=== PATIENT | male | born 1950 | race Caucasian/White ===

== ENCOUNTER 2021-08-28 23:58 | Inpatient (IN) ==
[2021-08-29] MEDS ORDERED: Naloxone 0.4 MG/ML INJ IVP PRN (12:34)
[2021-08-29] MEDS ORDERED: *HR* OxyCODONE/APAP 5/325 TABLET PO PRN (13:25)
[2021-08-29] MEDS ORDERED: Ringers Solution, Lactated 1,000 ML IVC SCH (13:30)
[2021-08-29] MEDS: Piperacillin/Tazobactam 3.375 GM in 0.9 % Sodium Chloride Mini Bag 100 ML IVPB SCH ×3 (14:15→23:36)
[2021-08-29] MEDS: *HR* Heparin 5,000 UNIT/ML VIAL SQ SCH (20:36)
[2021-08-30 02:51] LABS: Hematocrit 33.6 % (37.5-50.1); Hemoglobin 11.5 g/dL (12.9-16.9); Mean Corpuscular HGB Conc 34.2 g/dL (31.6-35.5); Mean Corpuscular Hemoglobin 31.3 pg (28.0-33.3); Mean Corpuscular Volume 91.3 fL (83.0-100.0); Mean Platelet Volume 11.7 fL (9.4-12.4); Platelet Count 111 K/mcL (140-400); Red Blood Count 3.68 M/mcL (4.19-5.50); Red Cell Distribution Width 12.4 % (11.5-14.5); White Blood Count 9.4 K/mcL (4.3-11.1)
[2021-08-30 03:09] LABS: Calcium 7.8 mg/dL (8.6-10.3); Potassium 3.8 mEq/L (3.5-5.1)
[2021-08-30 03:28] LABS: Burr Cells 1+ (Not Present)
[2021-08-30 03:31] LABS: Dohle Bodies Present (Not Present); Lymphocytes # 0.4 K/mcL (0.6-4.6); Monocytes # 0.2 K/mcL (0.0-1.3); Neutrophils # 8.8 K/mcL (1.6-8.9); Platelet Estimate Slight Decrease (Normal)
[2021-08-30] MEDS: *HR* Heparin 5,000 UNIT/ML VIAL SQ SCH ×2 (04:41→14:16)
[2021-08-30] MEDS ORDERED: Dextrose 4 GM Chewable Tablets PO PRN ×2 (05:37)
[2021-08-30] MEDS ORDERED: D5% in Water 1,000 ML IVC PRN (05:37)
[2021-08-30] MEDS: *HR* Dextrose 50 % in Water (Syg) 50 ML SYRINGE IVP PRN ×2 (05:46→05:58)
[2021-08-30 08:30] LABS: ABG Base Excess -6 mEq/L (-2 to 3); ABG HCO3 20 mEq/L (21-27); ABG Oxygen Saturation 95 % (95-98); ABG PCO2 41 mmHg (35-45); ABG PH 7.31 pH Units (7.32-7.45); ABG PO2 82 mmHg (85-104); ABG TCO2 21 mEq/L (20-26)
[2021-08-30] MEDS ORDERED: Azithromycin 500 MG in 0.9 % Sodium Chloride 250 ML IVPB SCH (09:00)
[2021-08-30] MEDS ORDERED: Vancomycin 1,250 MG/262.5 ML IV.SOLN IVPB ONE (09:00)
[2021-08-30] MEDS: 0.9 % Sodium Chloride 1,000 ML IVC SCH (12:11)
[2021-08-30] MEDS: Aspirin 81 MG TAB.CHEW PO SCH (12:11)
[2021-08-30] MEDS: Pantoprazole 40 MG VIAL IVP SCH (12:12)
[2021-08-30] MEDS: MethylPREDNISolone 40 MG/ML VIAL IVP SCH ×2 (12:13→20:30)
[2021-08-30] MEDS: Piperacillin/Tazobactam 3.375 GM in 0.9 % Sodium Chloride Mini Bag 100 ML IVPB SCH ×2 (14:17→20:03)
[2021-08-30] MEDS ORDERED: *HR* Heparin 5,000 UNIT/ML VIAL IVP ONE (19:37)
[2021-08-30] MEDS ORDERED: Ipratropium/Albuterol Neb 3 ML ONE (19:58)
[2021-08-30] MEDS: Ipratropium/Albuterol Neb 3 ML IH SCH (20:19)
[2021-08-30] MEDS: Budesonide/Formoterol 160/4.5 1 PUFF INH IH SCH (20:19)
[2021-08-30] MEDS: Heparin 25,000UNIT/250ML 1/2NS 25,000 UNIT/250 ML IV.SOLN IVC SCH (20:29)
[2021-08-30] MEDS: *HR* OxyCODONE Immed Rel 15 MG TABLET PO SCH (20:30)
[2021-08-30 21:50] LABS: Hematocrit 32.8 % (37.5-50.1); Hemoglobin 11.3 g/dL (12.9-16.9); Mean Corpuscular HGB Conc 34.5 g/dL (31.6-35.5); Mean Corpuscular Hemoglobin 31.1 pg (28.0-33.3); Mean Corpuscular Volume 90.4 fL (83.0-100.0); Mean Platelet Volume 11.5 fL (9.4-12.4); Platelet Count 144 K/mcL (140-400); Red Blood Count 3.63 M/mcL (4.19-5.50); Red Cell Distribution Width 12.3 % (11.5-14.5); White Blood Count 13.7 K/mcL (4.3-11.1)
[2021-08-30 21:55] LABS: Heparin anti-factor XA UFH 0.49 IU/mL (0.30-0.70)
[2021-08-30 21:56] LABS: INR 1.4; Prothrombin Time 15.9 Seconds (9.4-12.1)
[2021-08-31] MEDS: Piperacillin/Tazobactam 3.375 GM in 0.9 % Sodium Chloride Mini Bag 100 ML IVPB SCH ×2 (01:07→08:30)
[2021-08-31] MEDS: *HR* OxyCODONE Immed Rel 15 MG TABLET PO SCH ×6 (01:08→20:43)
[2021-08-31] MEDS: 0.9 % Sodium Chloride 1,000 ML IVC SCH ×2 (01:08→09:53)
[2021-08-31 03:35] LABS: Basophils % 0.1 %; Mean Corpuscular Volume 90.2 fL (83.0-100.0)
[2021-08-31 03:37] LABS: Hematocrit 34.1 % (37.5-50.1); Hemoglobin 11.7 g/dL (12.9-16.9); Immature Granulocytes % 0.5 % (0-4); Immature Platelets 7.2 % (1.1-6.1); Lymphocytes # 0.2 K/mcL (0.6-4.6); Lymphocytes % 1.3 %; Mean Corpuscular HGB Conc 34.3 g/dL (31.6-35.5); Monocytes # 0.2 K/mcL (0.0-1.3); Monocytes % 1.3 %; Neutrophils # 14.3 K/mcL (1.6-8.9); Platelet Count 147 K/mcL (140-400); Red Blood Count 3.78 M/mcL (4.19-5.50); Red Cell Distribution Width 12.4 % (11.5-14.5); Segmented Neutrophils % 96.8 %; White Blood Count 14.8 K/mcL (4.3-11.1)
[2021-08-31] MEDS: Ipratropium/Albuterol Neb 3 ML IH SCH ×4 (03:39→21:57)
[2021-08-31 04:44] LABS: Burr Cells 1+ (Not Present); Dohle Bodies Present (Not Present); Platelet Estimate Normal (Normal)
[2021-08-31] MEDS: MethylPREDNISolone 40 MG/ML VIAL IVP SCH ×4 (05:01→20:40)
[2021-08-31 05:40] LABS: Calcium 8.7 mg/dL (8.6-10.3); Magnesium 1.9 mg/dL (1.6-2.6); Phosphorous 4.3 mg/dL (2.7-4.5); Potassium 3.2 mEq/L (3.5-5.1)
[2021-08-31] MEDS: *HR* Heparin 5,000 UNIT/ML VIAL IVP PRN ×3 (06:52→19:15)
[2021-08-31] MEDS ORDERED: Perflutren Lipid Microsphere 1.3 ML in 0.9 % Sodium Chloride 8.7 ML IVP PRN (07:51)
[2021-08-31] MEDS ORDERED: Sennosides/Docusate Sodium TABLET PO PRN (07:53)
[2021-08-31] MEDS: Budesonide/Formoterol 160/4.5 1 PUFF INH IH SCH ×2 (07:58→21:57)
[2021-08-31] MEDS: Aspirin 81 MG TAB.CHEW PO SCH (08:29)
[2021-08-31] MEDS: Topiramate 25 MG TABLET PO SCH (08:29)
[2021-08-31] MEDS: Pantoprazole 40 MG VIAL IVP SCH (08:30)
[2021-08-31] MEDS: Sodium Bicarbonate 75 MEQ in 0.45 % Sodium Chloride 1,000 ML IVC SCH ×2 (08:30→22:47)
[2021-08-31 13:09] LABS: ABG Base Excess -5 mEq/L (-2 to 3); ABG HCO3 23 mEq/L (21-27); ABG Oxygen Saturation 95 % (95-98); ABG PCO2 56 mmHg (35-45); ABG PH 7.22 pH Units (7.32-7.45); ABG PO2 91 mmHg (85-104); ABG TCO2 25 mEq/L (20-26)
[2021-08-31 14:40] LABS: Amphetamine Screen,Urine Negative ng/mL (Cutoff=1000); Barbiturate Screen,Urine Negative ng/mL (Cutoff=200); Benzodiazepines Screen,Urine Negative ng/mL (Cutoff=200); Cannabinoid Screen,Urine Negative ng/mL (Cutoff = 50); Cocaine Screen,Urine Negative ng/mL (Cutoff= 300); Opiate Screen,Urine Positive ng/mL (Cutoff=300); Phencyclidine Screen,Urine Negative ng/mL (Cutoff=25)
[2021-08-31] MEDS ORDERED: *HR* LORazepam 2 MG/ML VIAL IVP ONE (16:32)
[2021-08-31] MEDS: cefTRIAXone 2,000 MG in 0.9 % Sodium Chloride Mini Bag 100 ML IVPB SCH (16:53)
[2021-08-31] MEDS: Heparin 25,000UNIT/250ML 1/2NS 25,000 UNIT/250 ML IV.SOLN IVC SCH (16:53)
[2021-08-31 17:45] LABS: ABG Base Excess -4 mEq/L (-2 to 3); ABG HCO3 26 mEq/L (21-27); ABG Oxygen Saturation 97 % (95-98); ABG PCO2 68 mmHg (35-45); ABG PH 7.19 pH Units (7.32-7.45); ABG PO2 113 mmHg (85-104); ABG TCO2 28 mEq/L (20-26); Blood Gas Pressure Support 16 cm H2O
[2021-08-31] MEDS: Topiramate 100 MG TABLET PO SCH (20:41)
[2021-08-31] MEDS: traZODone 50 MG TABLET PO SCH (20:41)
[2021-08-31 22:05] LABS: ABG Base Excess -3 mEq/L (-2 to 3); ABG HCO3 25 mEq/L (21-27); ABG Oxygen Saturation 96 % (95-98); ABG PCO2 56 mmHg (35-45); ABG PH 7.26 pH Units (7.32-7.45); ABG PO2 97 mmHg (85-104); ABG TCO2 27 mEq/L (20-26); Blood Gas Modality NIV
[2021-09-01] MEDS: *HR* OxyCODONE Immed Rel 15 MG TABLET PO SCH ×3 (00:12→08:57)
[2021-09-01] MEDS: *HR* Heparin 5,000 UNIT/ML VIAL IVP PRN (02:16)
[2021-09-01] MEDS: Ipratropium/Albuterol Neb 3 ML IH SCH ×4 (03:39→21:22)
[2021-09-01] MEDS: MethylPREDNISolone 40 MG/ML VIAL IVP SCH ×3 (04:27→20:00)
[2021-09-01] MEDS: Heparin 25,000UNIT/250ML 1/2NS 25,000 UNIT/250 ML IV.SOLN IVC SCH (05:07)
[2021-09-01] MEDS: Pantoprazole 40 MG VIAL IVP SCH (08:10)
[2021-09-01] MEDS: Aspirin 81 MG TAB.CHEW PO SCH (08:57)
[2021-09-01] MEDS: Topiramate 25 MG TABLET PO SCH (08:58)
[2021-09-01] MEDS ORDERED: *HR* OxyCODONE Immed Rel 15 MG TABLET PO PRN (09:40)
[2021-09-01] MEDS: Budesonide/Formoterol 160/4.5 1 PUFF INH IH SCH ×2 (10:20→21:22)
[2021-09-01 10:28] LABS: ABG Base Excess -3 mEq/L (-2 to 3); ABG HCO3 27 mEq/L (21-27); ABG Oxygen Saturation 94 % (95-98); ABG PCO2 80 mmHg (35-45); ABG PH 7.14 pH Units (7.32-7.45); ABG PO2 93 mmHg (85-104); ABG TCO2 30 mEq/L (20-26); Blood Gas Pressure Support 18 cm H2O
[2021-09-01 10:32] LABS: Acetaminophen < 10 mcg/mL (10-20); Salicylate < 2.5 mg/dL (15.0-30.0)
[2021-09-01 10:32] LABS: Magnesium 2.2 mg/dL (1.6-2.6); Phosphorous 5.5 mg/dL (2.7-4.5)
[2021-09-01 10:33] LABS: Calcium 8.7 mg/dL (8.6-10.3); Potassium 3.8 mEq/L (3.5-5.1)
[2021-09-01 10:34] LABS: Albumin 2.5 g/dL (3.5-5.7); Albumin/Globulin Ratio 0.8 (1.1-2.2); Bilirubin,Direct 0.1 mg/dL (0.0-0.2); Bilirubin,Indirect 0.3 mg/dL (0.0-1.0); Bilirubin,Total 0.4 mg/dL (0.3-1.0); Total Protein 5.5 g/dL (6.4-8.9)
[2021-09-01 12:56] LABS: ABG Base Excess -2 mEq/L (-2 to 3); ABG HCO3 28 mEq/L (21-27); ABG Oxygen Saturation 98 % (95-98); ABG PCO2 77 mmHg (35-45); ABG PH 7.18 pH Units (7.32-7.45); ABG PO2 139 mmHg (85-104); ABG TCO2 31 mEq/L (20-26)
[2021-09-01] MEDS: cefTRIAXone 2,000 MG in 0.9 % Sodium Chloride Mini Bag 100 ML IVPB SCH (14:49)
[2021-09-01 16:04] LABS: ABG Base Excess -1 mEq/L (-2 to 3); ABG HCO3 29 mEq/L (21-27); ABG Oxygen Saturation 91 % (95-98); ABG PCO2 79 mmHg (35-45); ABG PH 7.18 pH Units (7.32-7.45); ABG PO2 80 mmHg (85-104); ABG TCO2 32 mEq/L (20-26)
[2021-09-01] MEDS ORDERED: levETIRAcetam 1,000 MG in 0.9 % Sodium Chloride 100 ML IVPB ONE (17:30)
[2021-09-01] MEDS ORDERED: Furosemide 40 MG/4 ML VIAL IVP ONE (17:45)
[2021-09-01] MEDS ORDERED: Ringers Solution, Lactated 1,000 ML IVC SCH (17:45)
[2021-09-01] MEDS ORDERED: *HR* Heparin 5,000 UNIT/ML VIAL SQ SCH (18:00)
[2021-09-01 18:04] LABS: Basophils % 0.1 %; Hematocrit 34.9 % (37.5-50.1); Hemoglobin 11.5 g/dL (12.9-16.9); Immature Granulocytes % 0.7 % (0-4); Lymphocytes # 0.4 K/mcL (0.6-4.6); Lymphocytes % 3.7 %; Mean Corpuscular Hemoglobin 31.3 pg (28.0-33.3); Mean Corpuscular Volume 94.8 fL (83.0-100.0); Mean Platelet Volume 11.4 fL (9.4-12.4); Monocytes # 0.2 K/mcL (0.0-1.3); Monocytes % 2.3 %; Neutrophils # 9.9 K/mcL (1.6-8.9); Platelet Count 117 K/mcL (140-400); Red Blood Count 3.68 M/mcL (4.19-5.50); Red Cell Distribution Width 12.9 % (11.5-14.5); Segmented Neutrophils % 93.2 %; White Blood Count 10.6 K/mcL (4.3-11.1)
[2021-09-01 18:05] LABS: ABG Base Excess 0 mEq/L (-2 to 3); ABG HCO3 28 mEq/L (21-27); ABG Oxygen Saturation 97 % (95-98); ABG PCO2 65 mmHg (35-45); ABG PH 7.25 pH Units (7.32-7.45); ABG PO2 105 mmHg (85-104); ABG TCO2 30 mEq/L (20-26); Blood Gas Modality AVAPS
[2021-09-01 18:14] LABS: INR 1.2; Prothrombin Time 13.3 Seconds (9.4-12.1)
[2021-09-01 18:17] LABS: Activated Partial Thrombo Time 26.9 Seconds (26.0-36.0)
[2021-09-01 18:19] LABS: Albumin 2.6 g/dL (3.5-5.7); Albumin/Globulin Ratio 0.9 (1.1-2.2); Bilirubin,Direct 0.1 mg/dL (0.0-0.2); Bilirubin,Indirect 0.3 mg/dL (0.0-1.0); Bilirubin,Total 0.4 mg/dL (0.3-1.0); Calcium 8.7 mg/dL (8.6-10.3); Globulin 2.8 g/dL (2.4-3.5); Potassium 3.6 mEq/L (3.5-5.1); Total Protein 5.4 g/dL (6.4-8.9)
[2021-09-01 18:28] LABS: Platelet Estimate Decreased (Normal); Reactive Lymphocytes Present (Not Present)
[2021-09-01 20:31] LABS: ABG Base Excess 0 mEq/L (-2 to 3); ABG HCO3 29 mEq/L (21-27); ABG Oxygen Saturation 92 % (95-98); ABG PCO2 69 mmHg (35-45); ABG PH 7.23 pH Units (7.32-7.45); ABG PO2 77 mmHg (85-104); ABG TCO2 31 mEq/L (20-26); Blood Gas Modality AVAPS; Blood Gas VT 550 cc
[2021-09-01] MEDS: *HR* Heparin 5,000 UNIT/ML VIAL SQ SCH (20:52)
[2021-09-01] MEDS: Topiramate 100 MG TABLET PO SCH (21:45)
[2021-09-01] MEDS: traZODone 50 MG TABLET PO SCH (21:45)
[2021-09-02] MEDS: *HR* Metoprolol 5 MG/5 ML VIAL IVP SCH ×5 (01:50→23:48)
[2021-09-02 03:54] LABS: VBG Ionized Calcium 1.26 mmol/L (1.15-1.35)
[2021-09-02 03:59] LABS: Basophils % 0.1 %; Hematocrit 33.3 % (37.5-50.1); Immature Granulocytes % 0.8 % (0-4); Lymphocytes # 0.4 K/mcL (0.6-4.6); Lymphocytes % 4.9 %; Mean Corpuscular Hemoglobin 31.3 pg (28.0-33.3); Mean Corpuscular Volume 94.6 fL (83.0-100.0); Mean Platelet Volume 11.9 fL (9.4-12.4); Monocytes # 0.2 K/mcL (0.0-1.3); Monocytes % 2.3 %; Platelet Count 108 K/mcL (140-400); Red Blood Count 3.52 M/mcL (4.19-5.50); Segmented Neutrophils % 91.9 %
[2021-09-02 04:11] LABS: Neutrophils # 8.3 K/mcL (1.6-8.9)
[2021-09-02 04:16] LABS: Calcium 8.8 mg/dL (8.6-10.3); Phosphorous 3.5 mg/dL (2.7-4.5); Potassium 3.4 mEq/L (3.5-5.1)
[2021-09-02] MEDS: Ipratropium/Albuterol Neb 3 ML IH SCH ×4 (04:44→20:14)
[2021-09-02] MEDS: MethylPREDNISolone 40 MG/ML VIAL IVP SCH ×3 (04:49→20:08)
[2021-09-02 05:07] LABS: Platelet Estimate Slight Decrease (Normal); Reactive Lymphocytes Present (Not Present)
[2021-09-02] MEDS: Budesonide/Formoterol 160/4.5 1 PUFF INH IH SCH ×2 (07:44→20:15)
[2021-09-02] MEDS: Pantoprazole 40 MG VIAL IVP SCH (09:07)
[2021-09-02] MEDS: *HR* Heparin 5,000 UNIT/ML VIAL SQ SCH ×3 (09:07→20:10)
[2021-09-02] MEDS: Topiramate 25 MG TABLET PO SCH ×2 (09:08→11:24)
[2021-09-02] MEDS: Aspirin 81 MG TAB.CHEW PO SCH ×2 (09:08→11:24)
[2021-09-02] MEDS ORDERED: *HR* LORazepam 2 MG/ML VIAL IVP ONE (11:50)
[2021-09-02] MEDS ORDERED: Dexmedetomidine HCl 400 MCG/100 ML MLS IVC ONE (11:52)
[2021-09-02] MEDS ORDERED: *HR* LORazepam 2 MG/ML VIAL ONE (11:53)
[2021-09-02] MEDS: Dexmedetomidine HCl 400 MCG/100 ML MLS IVC SCH ×2 (12:27→20:38)
[2021-09-02] MEDS: cefTRIAXone 2,000 MG in 0.9 % Sodium Chloride Mini Bag 100 ML IVPB SCH (17:35)
[2021-09-02] MEDS: traZODone 50 MG TABLET PO SCH (20:07)
[2021-09-02] MEDS: Topiramate 100 MG TABLET PO SCH (20:08)
[2021-09-03 03:42] LABS: Basophils % 0.2 %; Hematocrit 30.9 % (37.5-50.1); Hemoglobin 10.2 g/dL (12.9-16.9); Immature Granulocytes % 1.1 % (0-4); Lymphocytes # 0.4 K/mcL (0.6-4.6); Mean Corpuscular Hemoglobin 30.2 pg (28.0-33.3); Mean Corpuscular Volume 91.4 fL (83.0-100.0); Mean Platelet Volume 11.5 fL (9.4-12.4); Monocytes # 0.2 K/mcL (0.0-1.3); Monocytes % 3.1 %; Neutrophils # 5.8 K/mcL (1.6-8.9); Platelet Count 111 K/mcL (140-400); Red Blood Count 3.38 M/mcL (4.19-5.50); Red Cell Distribution Width 12.3 % (11.5-14.5); Segmented Neutrophils % 89.6 %; White Blood Count 6.5 K/mcL (4.3-11.1)
[2021-09-03] MEDS: Ipratropium/Albuterol Neb 3 ML IH SCH ×4 (03:48→20:31)
[2021-09-03 03:53] LABS: VBG Ionized Calcium 1.18 mmol/L (1.15-1.35)
[2021-09-03 04:04] LABS: BUN/Creatinine Ratio 68 (6-26); Blood Urea Nitrogen 76 mg/dL (8-23); Calcium 8.6 mg/dL (8.6-10.3); Carbon Dioxide 28 mEq/L (23-29); Chloride 114 mEq/L (98-107); Glucose 121 mg/dL (70-105); Magnesium 1.8 mg/dL (1.6-2.6); Osmolality,Calculated 334 (280-300); Phosphorous 1.6 mg/dL (2.7-4.5); Potassium 3.1 mEq/L (3.5-5.1); Sodium 150 mEq/L (136-145); eGFR For African Americans > 60 (> 60); eGFR For Non-African Americans > 60 (> 60)
[2021-09-03] MEDS: MethylPREDNISolone 40 MG/ML VIAL IVP SCH ×3 (04:11→19:37)
[2021-09-03] MEDS: *HR* Metoprolol 5 MG/5 ML VIAL IVP SCH ×2 (04:12→12:10)
[2021-09-03 04:36] LABS: Platelet Estimate Decreased (Normal)
[2021-09-03] MEDS ORDERED: Potassium Phosphate 44 MEQ in 0.9 % Sodium Chloride 250 ML IVPB ONE (04:45)
[2021-09-03] MEDS ORDERED: *HR* Metoprolol 5 MG/5 ML VIAL IVP ONE ×2 (05:28→07:18)
[2021-09-03] MEDS: Dexmedetomidine HCl 400 MCG/100 ML MLS IVC SCH ×4 (07:35→20:25)
[2021-09-03] MEDS: Pantoprazole 40 MG VIAL IVP SCH (08:42)
[2021-09-03] MEDS: Aspirin 81 MG TAB.CHEW PO SCH (08:43)
[2021-09-03] MEDS: *HR* Heparin 5,000 UNIT/ML VIAL SQ SCH ×3 (08:44→19:38)
[2021-09-03] MEDS: Budesonide/Formoterol 160/4.5 1 PUFF INH IH SCH ×2 (10:26→20:32)
[2021-09-03] MEDS ORDERED: QUEtiapine Fumarate 25 MG TABLET PO ONE (11:00)
[2021-09-03] MEDS: D5% in 0.45% NACL w KCl 20 MEQ/1,000 ML MLS IVC SCH ×2 (12:00→22:25)
[2021-09-03] MEDS: Topiramate 25 MG TABLET PO SCH (14:25)
[2021-09-03] MEDS: cefTRIAXone 2,000 MG in 0.9 % Sodium Chloride Mini Bag 100 ML IVPB SCH (15:31)
[2021-09-03] MEDS: Topiramate 100 MG TABLET PO SCH (19:36)
[2021-09-03] MEDS: traZODone 50 MG TABLET PO SCH (19:36)
[2021-09-03] MEDS ORDERED: QUEtiapine Fumarate 25 MG TABLET PO SCH (21:00)
[2021-09-03] MEDS ORDERED: *HR* OxyCODONE Immed Rel 15 MG TABLET PO PRN (23:43)
[2021-09-03] MEDS ORDERED: *HR* Dextrose 50 % in Water (Syg) 50 ML SYRINGE IVP PRN (23:43)
[2021-09-03] MEDS ORDERED: Naloxone 0.4 MG/ML INJ IVP PRN (23:43)
[2021-09-03] MEDS ORDERED: Dextrose 4 GM Chewable Tablets PO PRN ×2 (23:43)
[2021-09-03] MEDS ORDERED: D5% in Water 1,000 ML IVC PRN (23:43)
[2021-09-03] MEDS ORDERED: Sennosides/Docusate Sodium TABLET PO PRN (23:43)
[2021-09-04] MEDS: Dexmedetomidine HCl 400 MCG/100 ML MLS IVC SCH ×4 (00:14→12:31)
[2021-09-04] MEDS: Ipratropium/Albuterol Neb 3 ML IH SCH ×4 (03:52→19:42)
[2021-09-04 04:32] LABS: Hematocrit 29.9 % (37.5-50.1); Hemoglobin 10.4 g/dL (12.9-16.9); Mean Corpuscular HGB Conc 34.8 g/dL (31.6-35.5); Mean Corpuscular Hemoglobin 30.8 pg (28.0-33.3); Mean Corpuscular Volume 88.5 fL (83.0-100.0); Red Blood Count 3.38 M/mcL (4.19-5.50)
[2021-09-04 04:34] LABS: Mean Platelet Volume 12.2 fL (9.4-12.4); Red Cell Distribution Width 12.2 % (11.5-14.5); White Blood Count 6.2 K/mcL (4.3-11.1)
[2021-09-04 04:48] LABS: BUN/Creatinine Ratio 55 (6-26); Blood Urea Nitrogen 46 mg/dL (8-23); Calcium 7.7 mg/dL (8.6-10.3); Carbon Dioxide 27 mEq/L (23-29); Chloride 110 mEq/L (98-107); Glucose 152 mg/dL (70-105); Magnesium 1.6 mg/dL (1.6-2.6); Osmolality,Calculated 311 (280-300); Phosphorous 2.5 mg/dL (2.7-4.5); Sodium 143 mEq/L (136-145); eGFR For African Americans > 60 (> 60); eGFR For Non-African Americans > 60 (> 60)
[2021-09-04] MEDS: *HR* Heparin 5,000 UNIT/ML VIAL SQ SCH ×3 (05:58→21:36)
[2021-09-04] MEDS: Pantoprazole 40 MG VIAL IVP SCH (08:15)
[2021-09-04] MEDS: Topiramate 25 MG TABLET PO SCH (08:15)
[2021-09-04] MEDS: Aspirin 81 MG TAB.CHEW PO SCH (08:16)
[2021-09-04] MEDS: predniSONE 20 MG TABLET PO SCH (08:16)
[2021-09-04] MEDS: D5% in 0.45% NACL w KCl 20 MEQ/1,000 ML MLS IVC SCH ×2 (08:56→08:57)
[2021-09-04] MEDS: Budesonide/Formoterol 160/4.5 1 PUFF INH IH SCH ×2 (10:22→19:42)
[2021-09-04] MEDS ORDERED: Potassium Phosphate 44 MEQ in 0.9 % Sodium Chloride 250 ML IVPB ONE (12:19)
[2021-09-04] MEDS: cefTRIAXone 2,000 MG in 0.9 % Sodium Chloride Mini Bag 100 ML IVPB SCH (14:45)
[2021-09-04] MEDS: Magic Mouthwash 10 ML UD Cup PO PRN (15:47)
[2021-09-04] MEDS: QUEtiapine Fumarate 25 MG TABLET PO SCH (19:53)
[2021-09-04] MEDS: Topiramate 100 MG TABLET PO SCH (19:53)
[2021-09-04] MEDS: traZODone 50 MG TABLET PO SCH (19:54)
[2021-09-05] MEDS: Ipratropium/Albuterol Neb 3 ML IH SCH ×4 (03:42→19:45)
[2021-09-05] MEDS: Magic Mouthwash 10 ML UD Cup PO PRN ×2 (04:02→20:22)
[2021-09-05] MEDS: *HR* Heparin 5,000 UNIT/ML VIAL SQ SCH ×3 (04:03→20:22)
[2021-09-05 04:23] LABS: Hemoglobin 11.4 g/dL (12.9-16.9)
[2021-09-05 04:24] LABS: Hematocrit 33.8 % (37.5-50.1)
[2021-09-05 04:42] LABS: BUN/Creatinine Ratio 34 (6-26); Blood Urea Nitrogen 31 mg/dL (8-23); Calcium 7.6 mg/dL (8.6-10.3); Carbon Dioxide 25 mEq/L (23-29); Chloride 110 mEq/L (98-107); Glucose 70 mg/dL (70-105); Magnesium 1.3 mg/dL (1.6-2.6); Osmolality,Calculated 299 (280-300); Phosphorous 2.9 mg/dL (2.7-4.5); Sodium 142 mEq/L (136-145); eGFR For African Americans > 60 (> 60); eGFR For Non-African Americans > 60 (> 60)
[2021-09-05] MEDS: Aspirin 81 MG TAB.CHEW PO SCH (07:49)
[2021-09-05] MEDS: Pantoprazole 40 MG VIAL IVP SCH (07:49)
[2021-09-05 07:50] LABS: Basophils % 0.1 %; Eosinophils % 0.1 %; Immature Granulocytes % 0.9 % (0-4); Lymphocytes # 0.9 K/mcL (0.6-4.6); Lymphocytes % 7.8 %; Mean Corpuscular HGB Conc 33.7 g/dL (31.6-35.5); Mean Corpuscular Hemoglobin 30.7 pg (28.0-33.3); Mean Corpuscular Volume 90.9 fL (83.0-100.0); Mean Platelet Volume 12.5 fL (9.4-12.4); Monocytes # 0.2 K/mcL (0.0-1.3); Monocytes % 1.7 %; Platelet Count 102 K/mcL (140-400); Red Blood Count 3.75 M/mcL (4.19-5.50); Red Cell Distribution Width 12.7 % (11.5-14.5); Segmented Neutrophils % 89.4 %
[2021-09-05] MEDS: Topiramate 25 MG TABLET PO SCH (07:50)
[2021-09-05] MEDS: predniSONE 20 MG TABLET PO SCH (07:50)
[2021-09-05 07:58] LABS: Neutrophils # 9.8 K/mcL (1.6-8.9)
[2021-09-05] MEDS: Budesonide/Formoterol 160/4.5 1 PUFF INH IH SCH ×2 (10:56→19:46)
[2021-09-05] MEDS: cefTRIAXone 2,000 MG in 0.9 % Sodium Chloride Mini Bag 100 ML IVPB SCH (14:18)
[2021-09-05] MEDS: Topiramate 100 MG TABLET PO SCH (20:12)
[2021-09-05] MEDS: QUEtiapine Fumarate 25 MG TABLET PO SCH (20:12)
[2021-09-05] MEDS: traZODone 50 MG TABLET PO SCH (20:13)
[2021-09-06] MEDS ORDERED: Acetaminophen 325 MG TABLET PO PRN (00:41)
[2021-09-06] MEDS: Ipratropium/Albuterol Neb 3 ML IH SCH ×3 (03:19→15:21)
[2021-09-06] MEDS: Magic Mouthwash 10 ML UD Cup PO PRN (04:27)
[2021-09-06] MEDS: *HR* Heparin 5,000 UNIT/ML VIAL SQ SCH ×2 (04:27→15:54)
[2021-09-06 05:20] LABS: BUN/Creatinine Ratio 24 (6-26); Blood Urea Nitrogen 23 mg/dL (8-23); Calcium 7.5 mg/dL (8.6-10.3); Carbon Dioxide 24 mEq/L (23-29); Chloride 110 mEq/L (98-107); Glucose 67 mg/dL (70-105); Magnesium 1.4 mg/dL (1.6-2.6); Osmolality,Calculated 292 (280-300); Phosphorous 3.7 mg/dL (2.7-4.5); Potassium 3.1 mEq/L (3.5-5.1); Sodium 140 mEq/L (136-145); eGFR For African Americans > 60 (> 60); eGFR For Non-African Americans > 60 (> 60)
[2021-09-06] MEDS: Topiramate 25 MG TABLET PO SCH (08:21)
[2021-09-06] MEDS: Aspirin 81 MG TAB.CHEW PO SCH (08:21)
[2021-09-06] MEDS: predniSONE 20 MG TABLET PO SCH (08:21)
[2021-09-06] MEDS: Pantoprazole 40 MG VIAL IVP SCH (08:22)
[2021-09-06] MEDS: Budesonide/Formoterol 160/4.5 1 PUFF INH IH SCH (09:53)
[2021-09-06] MEDS: cefTRIAXone 2,000 MG in 0.9 % Sodium Chloride Mini Bag 100 ML IVPB SCH (15:53)
[2021-09-06 17:02] VITALS: BP 144/73; PULSE 91; TEMP 98.2; O2SAT 93
== END 2021-09-06 17:20 | disposition home health service (06) | DRG 871 ==
LOC: 3NENU → SUATTDRO 08-29 11:44 → ICNU 09-01 17:19 → 2NNU 09-03 23:33
PROVIDERS: ADMIT Internal Medicine; ATTEND Internal Medicine

== ENCOUNTER 2021-12-16 17:29 | Inpatient (IN) ==
[2021-12-16 19:04] LABS: Bilirubin,Urine Negative (Negative); Blood,Urine Negative (Negative); Clarity,Urine Clear (Clear); Color,Urine Light-Yellow (Yellow); Glucose,Urine (UA) Normal (Normal); Ketones,Urine Negative (Negative); Leukocyte Esterase,Urine Negative (Negative); Nitrite,Urine Negative (Negative); Protein,Urine Negative (Neg-Trace); Specific Gravity,Urine 1.015 (1.010-1.025); Urobilinogen,Urine Normal (Normal)
[2021-12-16 19:25] LABS: Albumin/Globulin Ratio 1.3 (1.1-2.2); Bilirubin,Indirect 0.4 mg/dL (0.0-1.0); Bilirubin,Total 0.4 mg/dL (0.3-1.0); Calcium 9.1 mg/dL (8.6-10.3); Globulin 3.2 g/dL (2.4-3.5); Potassium 3.5 mEq/L (3.5-5.1); Total Protein 7.2 g/dL (6.4-8.9)
[2021-12-16 19:26] LABS: Hemoglobin 14.3 g/dL (12.9-16.9); Immature Granulocytes % 0.3 % (0-4); Red Cell Distribution Width 12.7 % (11.5-14.5)
[2021-12-16 19:28] LABS: Basophils # 0.1 K/mcL (0.0-0.2); Basophils % 0.9 %; Eosinophils # 0.3 K/mcL (0.0-0.6); Eosinophils % 2.9 %; Hematocrit 43.2 % (37.5-50.1); Lymphocytes # 2.6 K/mcL (0.6-4.6); Lymphocytes % 28.8 %; Mean Corpuscular HGB Conc 33.1 g/dL (31.6-35.5); Mean Corpuscular Hemoglobin 30.5 pg (28.0-33.3); Mean Corpuscular Volume 92.1 fL (83.0-100.0); Monocytes # 0.4 K/mcL (0.0-1.3); Neutrophils # 5.6 K/mcL (1.6-8.9); Red Blood Count 4.69 M/mcL (4.19-5.50); Segmented Neutrophils % 63.1 %; White Blood Count 8.9 K/mcL (4.3-11.1)
[2021-12-16] MEDS ORDERED: Iopamidol - 370 500 ML MLS IVP ONE (20:01)
[2021-12-16] MEDS ORDERED: Ondansetron 4 MG/2 ML VIAL IVP ONE ×2 (20:21→20:22)
[2021-12-16] MEDS ORDERED: 0.9 % Sodium Chloride 1,000 ML IVC ONE (20:22)
[2021-12-16] MEDS ORDERED: *HR* HYDROmorphone (PF) 1 MG/ML SYRINGE IVP ONE (20:24)
[2021-12-16] MEDS ORDERED: MetroNIDAZOLE 500 MG/100 ML 500 MG/100 ML BAG IVPB ONE (20:28)
[2021-12-16] MEDS ORDERED: Cefepime HCl 2,000 MG in 0.9 % Sodium Chloride Mini Bag 100 ML IVPB SCH (21:00)
[2021-12-16] MEDS ORDERED: Ondansetron 4 MG/2 ML VIAL IVP PRN (21:11)
[2021-12-16] MEDS ORDERED: Naloxone 0.4 MG/ML INJ IVP PRN (21:11)
[2021-12-16] MEDS ORDERED: Acetaminophen 325 MG TABLET PO PRN (21:11)
[2021-12-16] MEDS: 0.9 % Sodium Chloride 1,000 ML IVC SCH (23:25)
[2021-12-17] MEDS ORDERED: MetroNIDAZOLE 500 MG/100 ML 500 MG/100 ML BAG IVPB SCH
[2021-12-17 01:42] LABS: Basophils # 0.1 K/mcL (0.0-0.2); Eosinophils # 0.3 K/mcL (0.0-0.6); Eosinophils % 3.2 %; Hematocrit 34.3 % (37.5-50.1); Immature Granulocytes % 0.4 % (0-4); Lymphocytes # 2.6 K/mcL (0.6-4.6); Lymphocytes % 31.2 %; Mean Corpuscular HGB Conc 33.2 g/dL (31.6-35.5); Mean Corpuscular Hemoglobin 31.1 pg (28.0-33.3); Mean Corpuscular Volume 93.5 fL (83.0-100.0); Mean Platelet Volume 11.2 fL (9.4-12.4); Monocytes # 0.5 K/mcL (0.0-1.3); Monocytes % 5.8 %; Neutrophils # 4.9 K/mcL (1.6-8.9); Platelet Count 128 K/mcL (140-400); Red Blood Count 3.67 M/mcL (4.19-5.50); Red Cell Distribution Width 12.7 % (11.5-14.5); Segmented Neutrophils % 58.4 %; White Blood Count 8.3 K/mcL (4.3-11.1)
[2021-12-17 01:46] LABS: Hemoglobin 11.4 g/dL (12.9-16.9)
[2021-12-17 01:52] LABS: INR 1.3; Prothrombin Time 14.3 Seconds (9.4-12.1)
[2021-12-17 02:04] LABS: Calcium 7.9 mg/dL (8.6-10.3); Magnesium 1.4 mg/dL (1.6-2.6); Potassium 3.1 mEq/L (3.5-5.1)
[2021-12-17] MEDS ORDERED: Magnesium Sulfate 1 GM/102 ML PIGGYBACK IVPB ONE (02:45)
[2021-12-17] MEDS ORDERED: Lidocaine 4% CREAM (LMX) 5 GM TP PRN (03:50)
[2021-12-17] MEDS ORDERED: SUMAtriptan succinate 50 MG TABLET PO PRN (03:50)
[2021-12-17] MEDS ORDERED: *HR* OxyCODONE Immed Rel 5 MG TABLET PO PRN (04:00)
[2021-12-17] MEDS: Artificial Tears SOLN 15 ML BOTTLE BOTH EYES SCH ×3 (05:07→18:06)
[2021-12-17] MEDS: *HR* OxyCODONE Immed Rel 15 MG TABLET PO SCH ×3 (05:07→18:04)
[2021-12-17] MEDS: MetroNIDAZOLE 500 MG/100 ML 500 MG/100 ML BAG IVPB SCH ×2 (05:10→13:19)
[2021-12-17] MEDS: Budesonide/Formoterol 160/4.5 1 PUFF INH IH SCH ×2 (07:45→22:32)
[2021-12-17] MEDS: 0.9 % Sodium Chloride 1,000 ML IVC SCH (08:41)
[2021-12-17] MEDS: Cefepime HCl 2,000 MG in 0.9 % Sodium Chloride 10 ML IVP SCH ×2 (08:53→19:31)
[2021-12-17] MEDS: Magnesium Oxide 400 MG TABLET PO SCH (08:53)
[2021-12-17] MEDS: Topiramate 100 MG TABLET PO SCH (08:54)
[2021-12-17] MEDS: polyethylene glycoL 3350 17 GM POWD.PACK PO SCH (08:54)
[2021-12-17] MEDS: OLOPATADINE HCL OP SCH (08:56)
[2021-12-17] MEDS ORDERED: Aspirin Enteric Coated 81 MG Tablet PO SCH (09:00)
[2021-12-17] MEDS ORDERED: Cholecalciferol (D-3) 1,000 UNIT (25MCG) TABLET PO SCH (09:00)
[2021-12-17] MEDS ORDERED: Loratadine 10 MG TABLET PO SCH (09:00)
[2021-12-17] MEDS ORDERED: *HR* HYDROmorphone (PF) 1 MG/ML SYRINGE IVP PRN ×2 (10:51→18:22)
[2021-12-17] MEDS ORDERED: *HR* Propofol 200 MG/20 ML VIAL IVP ONE ×2 (12:31→19:31)
[2021-12-17] MEDS ORDERED: Lidocaine -MPF 2% 5 ML VIAL ONE ×2 (13:12→19:31)
[2021-12-17] MEDS ORDERED: *HR* Rocuronium Bromide 50 MG/5 ML VIAL ONE ×3 (13:12→21:59)
[2021-12-17] MEDS ORDERED: *HR* Succinylcholine 200 MG/10 ML VIAL IVP ONE ×2 (13:12→19:31)
[2021-12-17] MEDS ORDERED: Ondansetron 4 MG/2 ML VIAL ONE ×2 (19:31→22:56)
[2021-12-17] MEDS ORDERED: *HR* FentaNYL (PF) 100 MCG/2 ML VIAL ONE (19:31)
[2021-12-17] MEDS ORDERED: Ketamine HCL *QUVA* 50mg (1mL) SYRINGE ONE (19:35)
[2021-12-17] MEDS ORDERED: Famotidine 20 MG TABLET PO SCH (21:00)
[2021-12-17] MEDS ORDERED: Melatonin 3 MG TABLET PO SCH (21:00)
[2021-12-17] MEDS ORDERED: Acetaminophen IV 1,000 MG/100 ML BAG IVPB ONE (21:26)
[2021-12-17] MEDS ORDERED: *HR* HYDROMORPHONE 2 MG/ML VIAL ONE (21:56)
[2021-12-17] MEDS ORDERED: Sugammadex Sodium 200 MG/2 ML VIAL IV ONE (22:24)
[2021-12-17] MEDS: *HR* HYDROmorphone PF 0.5 MG/0.5 ML SYRINGE IVP PRN ×2 (22:51→23:44)
[2021-12-17] MEDS ORDERED: Ondansetron 4 MG/2 ML VIAL IVP ONE (22:54)
[2021-12-18] MEDS ORDERED: Acetaminophen IV 1,000 MG/100 ML BAG IVPB SCH
[2021-12-18] MEDS ORDERED: *HR* HYDROmorphone (PF) 1 MG/ML SYRINGE IVP PRN (00:11)
[2021-12-18] MEDS ORDERED: Lidocaine 4% CREAM (LMX) 5 GM TP PRN (00:11)
[2021-12-18] MEDS ORDERED: *HR* OxyCODONE Immed Rel 5 MG TABLET PO PRN (00:11)
[2021-12-18] MEDS ORDERED: Naloxone 0.4 MG/ML INJ IVP PRN (00:11)
[2021-12-18] MEDS: Ketorolac 30 MG/ML VIAL IVP SCH ×5 (01:09→23:03)
[2021-12-18] MEDS: Acetaminophen IV 1,000 MG/100 ML BAG IVPB SCH ×3 (05:14→18:15)
[2021-12-18] MEDS: *HR* Heparin 5,000 UNIT/ML VIAL SQ SCH ×2 (05:16→18:14)
[2021-12-18] MEDS: Artificial Tears SOLN 15 ML BOTTLE BOTH EYES SCH ×4 (05:18→18:15)
[2021-12-18] MEDS ORDERED: *HR* OxyCODONE Immed Rel 15 MG TABLET PO SCH (06:00)
[2021-12-18] MEDS: MetroNIDAZOLE 500 MG/100 ML 500 MG/100 ML BAG IVPB SCH ×4 (06:04→23:03)
[2021-12-18] MEDS: *HR* OxyCODONE Immed Rel 15 MG TABLET PO SCH (06:55)
[2021-12-18] MEDS: Topiramate 100 MG TABLET PO SCH (06:55)
[2021-12-18] MEDS: OLOPATADINE HCL OP SCH (06:56)
[2021-12-18] MEDS: polyethylene glycoL 3350 17 GM POWD.PACK PO SCH (06:56)
[2021-12-18] MEDS: Magnesium Oxide 400 MG TABLET PO SCH (06:57)
[2021-12-18] MEDS: Cefepime HCl 2,000 MG in 0.9 % Sodium Chloride 10 ML IVP SCH ×2 (08:17→23:04)
[2021-12-18] MEDS: Pantoprazole 40 MG VIAL IVP SCH (08:18)
[2021-12-18] MEDS: Budesonide/Formoterol 160/4.5 1 PUFF INH IH SCH ×2 (08:35→20:08)
[2021-12-18 10:18] LABS: Basophils % 0.3 %; Eosinophils % 0.1 %; Immature Granulocytes % 0.5 % (0-4); Lymphocytes # 1.5 K/mcL (0.6-4.6); Lymphocytes % 11.8 %; Mean Corpuscular HGB Conc 33.3 g/dL (31.6-35.5); Mean Corpuscular Hemoglobin 31.2 pg (28.0-33.3); Mean Corpuscular Volume 93.5 fL (83.0-100.0); Mean Platelet Volume 11.4 fL (9.4-12.4); Monocytes # 0.5 K/mcL (0.0-1.3); Monocytes % 3.5 %; Neutrophils # 10.8 K/mcL (1.6-8.9); Platelet Count 153 K/mcL (140-400); Red Blood Count 3.53 M/mcL (4.19-5.50); Red Cell Distribution Width 12.7 % (11.5-14.5); Segmented Neutrophils % 83.8 %; White Blood Count 12.9 K/mcL (4.3-11.1)
[2021-12-18 10:27] LABS: Albumin/Globulin Ratio 1.3 (1.1-2.2); Bilirubin,Total 0.4 mg/dL (0.3-1.0); Calcium 8.5 mg/dL (8.6-10.3); Globulin 2.4 g/dL (2.4-3.5); Magnesium 1.7 mg/dL (1.6-2.6); Potassium 3.9 mEq/L (3.5-5.1); Total Protein 5.4 g/dL (6.4-8.9)
[2021-12-19] MEDS: Acetaminophen IV 1,000 MG/100 ML BAG IVPB SCH ×4 (00:11→17:17)
[2021-12-19] MEDS: Ondansetron 4 MG/2 ML VIAL IVP PRN ×2 (00:58→15:21)
[2021-12-19 03:07] LABS: Basophils # 0.1 K/mcL (0.0-0.2); Basophils % 0.6 %; Eosinophils # 0.3 K/mcL (0.0-0.6); Eosinophils % 3.1 %; Hematocrit 32.7 % (37.5-50.1); Hemoglobin 10.8 g/dL (12.9-16.9); Immature Granulocytes % 0.3 % (0-4); Lymphocytes # 2.3 K/mcL (0.6-4.6); Lymphocytes % 24.4 %; Mean Corpuscular Hemoglobin 30.4 pg (28.0-33.3); Mean Corpuscular Volume 92.1 fL (83.0-100.0); Mean Platelet Volume 11.5 fL (9.4-12.4); Monocytes # 0.5 K/mcL (0.0-1.3); Neutrophils # 6.2 K/mcL (1.6-8.9); Platelet Count 131 K/mcL (140-400); Red Blood Count 3.55 M/mcL (4.19-5.50); Red Cell Distribution Width 12.5 % (11.5-14.5); Segmented Neutrophils % 66.6 %; White Blood Count 9.3 K/mcL (4.3-11.1)
[2021-12-19 03:29] LABS: Albumin/Globulin Ratio 1.2 (1.1-2.2); Bilirubin,Total 0.4 mg/dL (0.3-1.0); Calcium 8.4 mg/dL (8.6-10.3); Globulin 2.5 g/dL (2.4-3.5); Magnesium 1.9 mg/dL (1.6-2.6); Phosphorous 2.8 mg/dL (2.7-4.5); Potassium 3.5 mEq/L (3.5-5.1); Total Protein 5.5 g/dL (6.4-8.9)
[2021-12-19] MEDS: Artificial Tears SOLN 15 ML BOTTLE BOTH EYES SCH ×4 (04:52→17:17)
[2021-12-19] MEDS: MetroNIDAZOLE 500 MG/100 ML 500 MG/100 ML BAG IVPB SCH ×3 (06:10→22:09)
[2021-12-19] MEDS: *HR* Heparin 5,000 UNIT/ML VIAL SQ SCH ×2 (06:12→17:43)
[2021-12-19] MEDS: Ketorolac 30 MG/ML VIAL IVP SCH ×3 (06:12→17:42)
[2021-12-19] MEDS: Budesonide/Formoterol 160/4.5 1 PUFF INH IH SCH ×2 (07:42→19:51)
[2021-12-19] MEDS: Cefepime HCl 2,000 MG in 0.9 % Sodium Chloride 10 ML IVP SCH ×2 (08:29→22:08)
[2021-12-19] MEDS: Pantoprazole 40 MG VIAL IVP SCH (08:29)
[2021-12-19] MEDS ORDERED: D5% in Water 1,000 ML IVC PRN (18:34)
[2021-12-19] MEDS ORDERED: Dextrose Gel 15 GM/37.5 ML TUBE PO PRN ×2 (18:34)
[2021-12-19] MEDS: *HR* Dextrose 50 % in Water (Syg) 50 ML SYRINGE IVP PRN ×2 (18:52→23:12)
[2021-12-20] MEDS: Ketorolac 30 MG/ML VIAL IVP SCH ×4 (00:23→17:43)
[2021-12-20] MEDS: Ondansetron 4 MG/2 ML VIAL IVP PRN (02:49)
[2021-12-20] MEDS: Acetaminophen IV 1,000 MG/100 ML BAG IVPB SCH ×4 (02:51→17:47)
[2021-12-20] MEDS ORDERED: Famotidine 20 MG/2 ML VIAL IVP ONE (05:14)
[2021-12-20 05:32] LABS: Basophils # 0.1 K/mcL (0.0-0.2); Basophils % 0.7 %; Eosinophils # 0.4 K/mcL (0.0-0.6); Eosinophils % 4.2 %; Hematocrit 32.7 % (37.5-50.1); Hemoglobin 10.7 g/dL (12.9-16.9); Immature Granulocytes % 0.2 % (0-4); Lymphocytes # 1.7 K/mcL (0.6-4.6); Lymphocytes % 18.1 %; Mean Corpuscular HGB Conc 32.7 g/dL (31.6-35.5); Mean Corpuscular Hemoglobin 30.2 pg (28.0-33.3); Mean Corpuscular Volume 92.4 fL (83.0-100.0); Mean Platelet Volume 11.8 fL (9.4-12.4); Monocytes # 0.4 K/mcL (0.0-1.3); Neutrophils # 6.9 K/mcL (1.6-8.9); Platelet Count 101 K/mcL (140-400); Red Blood Count 3.54 M/mcL (4.19-5.50); Red Cell Distribution Width 12.3 % (11.5-14.5); Segmented Neutrophils % 72.8 %; White Blood Count 9.5 K/mcL (4.3-11.1)
[2021-12-20] MEDS: *HR* Heparin 5,000 UNIT/ML VIAL SQ SCH ×2 (05:32→17:44)
[2021-12-20] MEDS: MetroNIDAZOLE 500 MG/100 ML 500 MG/100 ML BAG IVPB SCH ×3 (05:32→22:49)
[2021-12-20 06:17] LABS: Magnesium 1.7 mg/dL (1.6-2.6)
[2021-12-20 06:18] LABS: Alanine Aminotransferase 5 Units/L (7-52); Albumin/Globulin Ratio 1.3 (1.1-2.2); Alkaline Phosphatase 43 Units/L (34-104); Aspartate Amino Transferase 10 Units/L (13-39); BUN/Creatinine Ratio 18 (6-26); Bilirubin,Total 0.4 mg/dL (0.3-1.0); Blood Urea Nitrogen 16 mg/dL (8-23); Calcium 8.1 mg/dL (8.6-10.3); Carbon Dioxide 26 mEq/L (23-29); Chloride 108 mEq/L (98-107); Globulin 2.3 g/dL (2.4-3.5); Glucose 72 mg/dL (70-105); Osmolality,Calculated 290 (280-300); Potassium 3.4 mEq/L (3.5-5.1); Sodium 140 mEq/L (136-145); Total Protein 5.3 g/dL (6.4-8.9)
[2021-12-20] MEDS: Budesonide/Formoterol 160/4.5 1 PUFF INH IH SCH ×2 (07:45→20:04)
[2021-12-20] MEDS: Cefepime HCl 2,000 MG in 0.9 % Sodium Chloride 10 ML IVP SCH ×2 (09:28→22:48)
[2021-12-20] MEDS: Pantoprazole 40 MG VIAL IVP SCH (09:29)
[2021-12-20] MEDS: Artificial Tears SOLN 15 ML BOTTLE BOTH EYES SCH ×4 (11:26→20:56)
[2021-12-20] MEDS: *HR* Dextrose 50 % in Water (Syg) 50 ML SYRINGE IVP PRN (11:36)
[2021-12-21] MEDS: Ketorolac 30 MG/ML VIAL IVP SCH ×2 (00:30→06:49)
[2021-12-21] MEDS: Artificial Tears SOLN 15 ML BOTTLE BOTH EYES SCH ×5 (00:30→23:43)
[2021-12-21] MEDS: Acetaminophen IV 1,000 MG/100 ML BAG IVPB SCH ×2 (00:30→06:49)
[2021-12-21] MEDS: MetroNIDAZOLE 500 MG/100 ML 500 MG/100 ML BAG IVPB SCH ×2 (06:49→14:28)
[2021-12-21] MEDS: *HR* Heparin 5,000 UNIT/ML VIAL SQ SCH ×2 (06:49→17:03)
[2021-12-21] MEDS: Budesonide/Formoterol 160/4.5 1 PUFF INH IH SCH ×2 (07:52→20:33)
[2021-12-21] MEDS: Cefepime HCl 2,000 MG in 0.9 % Sodium Chloride 10 ML IVP SCH ×2 (08:40→21:22)
[2021-12-21] MEDS: Pantoprazole 40 MG VIAL IVP SCH (08:41)
[2021-12-21 09:19] LABS: Basophils # 0.1 K/mcL (0.0-0.2); Basophils % 0.7 %; Eosinophils # 0.4 K/mcL (0.0-0.6); Hematocrit 31.7 % (37.5-50.1); Hemoglobin 10.9 g/dL (12.9-16.9); Immature Granulocytes % 0.3 % (0-4); Lymphocytes # 1.6 K/mcL (0.6-4.6); Mean Corpuscular HGB Conc 34.4 g/dL (31.6-35.5); Mean Corpuscular Volume 90.1 fL (83.0-100.0); Monocytes # 0.4 K/mcL (0.0-1.3); Monocytes % 5.2 %; Neutrophils # 4.7 K/mcL (1.6-8.9); Platelet Count 162 K/mcL (140-400); Red Blood Count 3.52 M/mcL (4.19-5.50); Red Cell Distribution Width 12.4 % (11.5-14.5); Segmented Neutrophils % 65.8 %; White Blood Count 7.2 K/mcL (4.3-11.1)
[2021-12-21 09:20] LABS: Magnesium 1.5 mg/dL (1.6-2.6); Phosphorous 2.3 mg/dL (2.7-4.5)
[2021-12-21 09:23] LABS: Alanine Aminotransferase 6 Units/L (7-52); Albumin 2.9 g/dL (3.5-5.7); Albumin/Globulin Ratio 1.2 (1.1-2.2); Alkaline Phosphatase 42 Units/L (34-104); Aspartate Amino Transferase 12 Units/L (13-39); BUN/Creatinine Ratio 13 (6-26); Bilirubin,Total 0.4 mg/dL (0.3-1.0); Blood Urea Nitrogen 11 mg/dL (8-23); Calcium 8.1 mg/dL (8.6-10.3); Carbon Dioxide 29 mEq/L (23-29); Chloride 105 mEq/L (98-107); Globulin 2.4 g/dL (2.4-3.5); Glucose 111 mg/dL (70-105); Osmolality,Calculated 286 (280-300); Sodium 138 mEq/L (136-145); Total Protein 5.3 g/dL (6.4-8.9)
[2021-12-21] MEDS ORDERED: Ibuprofen 800 MG TABLET PO SCH (10:30)
[2021-12-21] MEDS ORDERED: Ibuprofen 600 MG TABLET PO ONE (10:36)
[2021-12-21] MEDS: Acetaminophen 325 MG TABLET PO SCH ×3 (12:49→23:42)
[2021-12-21] MEDS ORDERED: Potassium Phosphate 44 MEQ in 0.9 % Sodium Chloride 250 ML IVPB ONE (13:18)
[2021-12-21] MEDS: Ibuprofen 800 MG TABLET PO SCH (19:51)
[2021-12-22 03:05] VITALS: O2SAT 97
[2021-12-22] MEDS: Ibuprofen 800 MG TABLET PO SCH ×2 (03:41→11:48)
[2021-12-22 04:23] LABS: Magnesium 1.8 mg/dL (1.6-2.6); Phosphorous 2.4 mg/dL (2.7-4.5)
[2021-12-22] MEDS: MetroNIDAZOLE 500 MG/100 ML 500 MG/100 ML BAG IVPB SCH ×2 (06:32→06:38)
[2021-12-22] MEDS: Acetaminophen 325 MG TABLET PO SCH ×2 (06:34→11:48)
[2021-12-22] MEDS: *HR* Heparin 5,000 UNIT/ML VIAL SQ SCH (06:36)
[2021-12-22] MEDS: Budesonide/Formoterol 160/4.5 1 PUFF INH IH SCH (07:48)
[2021-12-22] MEDS: Cefepime HCl 2,000 MG in 0.9 % Sodium Chloride 10 ML IVP SCH (09:11)
[2021-12-22] MEDS: Artificial Tears SOLN 15 ML BOTTLE BOTH EYES SCH (09:17)
[2021-12-22 11:07] VITALS: BP 146/87; PULSE 82; TEMP 98.4
== END 2021-12-22 11:55 | disposition home or self-care (01) | DRG 329 ==
LOC: 3ANU 17:29 → EMEROOARM 17:29 → 3ANU 22:00
PROVIDERS: ADMIT Student in an Organized Health Care Education/Training Program; ATTEND Student in an Organized Health Care Education/Training Program